=== PATIENT | female | born 1990 | race Caucasian/White ===

== ENCOUNTER → 2023-11-18 15:51 | Outpatient (REF) | payer BC, SELFPAY | LOC: PNTC 15:51 | PROVIDERS: ATTENDING PHYSICIAN Obstetrics & Gynecology | DX: E06.3 Autoimmune thyroiditis (principal); O44.42 Low lying placenta NOS or without hemorrhage, second trimester | CPT/HCPCS: 76816 ==

== ENCOUNTER 2024-01-08 08:30 | Inpatient (IN) | payer BC, SELFPAY ==
[2024-01-08 08:49] VITALS: BP 109/89; BMI 33.0
[2024-01-08] MEDS: LR 1000 IV ×2 (09:45→18:05)
[2024-01-08 10:59] LABS: % Basophils 0.3 % (0-2); % Eosinophils 0.8 % (0-6); % Immature Granulocytes 0.6 % (0-0.5); % Lymphocytes 15.3 % (20.5-51.1); % Monocytes 9.5 % (1.7-9.3); % Neutrophils 73.5 % (42.2-75.2); Absolute Eosinophils 0.1 10^3/uL (0-0.7); Absolute Immature Granulocytes 0.1 10^3/uL (0-0.05); Absolute Lymphocytes 1.5 10^3/uL (1.2-3.4); Absolute Monocytes 0.9 10^3/uL (0.1-0.6); Hematocrit 36.6 % (37.0-47.0); Hemoglobin 13.1 g/dL (12.0-16.0); Mean Corp Hgb Conc. 35.8 g/dL (33.0-37.0); Mean Corpuscular Hgb 31.5 pg (27.0-31.0); Mean Platelet Volume 12.2 fL (7.4-10.4); Nucleated Red Blood Cells % 0 %; Platelet Count 200 10^3/uL (130-400); Red Blood Cell Count 4.16 10^6/uL (4.20-5.40); White Blood Cell Count 9.5 10^3/uL (4.8-10.8)
[2024-01-08] MEDS: CYTOTEC 25 MICROGRAM PO ×2 (11:18→13:19)
[2024-01-08] MEDS: PITOCIN 30 UNITS/NSS 500 ML IV (17:24)
[2024-01-09] MEDS: LR 1000 IV ×4 (03:45→14:53)
[2024-01-09] MEDS: FENTANYL/BUPIVACAINE 100 EPIDURAL ×2 (04:06→10:58)
[2024-01-09] MEDS: SUBLIMAZE 100 MCG EPIDURAL (04:22)
[2024-01-09] MEDS: SYNTHROID 125 MCG PO (06:45)
[2024-01-09] MEDS: TYLENOL 1000 MG PO ×2 (10:40→16:42)
[2024-01-09] MEDS: ANCEF 10 IV ×2 (12:33→20:10)
[2024-01-09] MEDS: GENTAMICIN 60 MG IV (13:00)
[2024-01-09] MEDS: BICITRA 30 ML PO (16:35)
[2024-01-09] MEDS: PITOCIN 30 UNITS/NSS 500 ML IV (17:01)
--- NOTE | 2024-01-09 17:52 | W.IMMPOSTOP ---
Surgical Immed Post Op Note
-
Primary Surgeon: Kelli Gamez DO
Assisting Surgeon: Tina Parr RN
Pre-op Diagnosis: IUP at 40+3wks, arrest of descent, prolonged rupture of membranes, suspected intraamniotic infection
Post-op Diagnosis: SIERRA
Procedure Performed: PLTCS
Anesthesia Type: Epidural
Specimen / Cultures: Placenta
Estimated Blood Loss: 475ml
Complications: none
Operative Findings: normal-appearing uterus, tubes and ovaries, cephalic female infant in the ROSALINDA position, but not well-applied in the pelvis (head not flexed), weighing 4125gm, Apgars 8.9, nuchal cord x1. Clear amniotic fluid.
[2024-01-09] MEDS: METHERGINE INJECTION 0.200000000000000011 MG IM (18:38)
[2024-01-09] MEDS: TRANEXAMIC ACID 100 IV (18:44)
[2024-01-09] MEDS: CYTOTEC 800 MCG RECTAL (18:47)
[2024-01-09 18:59] LABS: Hematocrit 30.9 % (37.0-47.0); Hemoglobin 11.1 g/dL (12.0-16.0); Mean Corp Hgb Conc. 35.9 g/dL (33.0-37.0); Mean Corpuscular Hgb 32.2 pg (27.0-31.0); Mean Corpuscular Volume 89.6 fL (81.0-99.0); Mean Platelet Volume 12.2 fL (7.4-10.4); Platelet Count 190 10^3/uL (130-400); Red Blood Cell Count 3.45 10^6/uL (4.20-5.40); White Blood Cell Count 15.7 10^3/uL (4.8-10.8)
[2024-01-09 20:23] LABS: INR 0.97; PT 12.7 Sec (11.4-14.6)
[2024-01-09 20:24] LABS: APTT 29.5 Sec (23.4-35.0)
[2024-01-09 20:26] LABS: Fibrinogen 498 MG/DL (199-459)
[2024-01-09] MEDS: TORADOL 15 MG IV (23:58)
[2024-01-10] MEDS: METHERGINE 0.200000000000000011 MG PO ×2 (00:27→06:20)
[2024-01-10] MEDS: ANCEF 10 IV ×2 (04:03→11:42)
[2024-01-10 04:20] LABS: Hematocrit 28.2 % (37.0-47.0); Hemoglobin 9.8 g/dL (12.0-16.0); Mean Corp Hgb Conc. 34.8 g/dL (33.0-37.0); Mean Corpuscular Hgb 32.1 pg (27.0-31.0); Mean Corpuscular Volume 92.5 fL (81.0-99.0); Mean Platelet Volume 12.3 fL (7.4-10.4); Platelet Count 157 10^3/uL (130-400); Red Blood Cell Count 3.05 10^6/uL (4.20-5.40); Red Cell Dist. Width 12.7 % (11.5-14.5); White Blood Cell Count 17.1 10^3/uL (4.8-10.8)
[2024-01-10] MEDS: SYNTHROID 100 MCG PO (06:04)
[2024-01-10] MEDS: TORADOL 15 MG IV ×2 (06:04→11:41)
--- NOTE | 2024-01-10 08:11 | W.PN.ANS.POP ---
Anesthesia Post Operative
- Anesthesia Post Op Note
Vital Signs Stable-See Nursing Note: Yes
Airway Patent: Yes
Adequate Pain Control: Yes
Change in Mental Status: No
Current Postoperative Nausea & Vomiting: No
Anesthesia Complications: No
General Anesthetic Recall: No
Unplanned Admission: No
Post Op Hydration Adequate: Yes
[2024-01-10] MEDS: PRENATAL PLUS 1 TABLET PO (08:16)
[2024-01-10] MEDS: METHERGINE PO (13:28)
[2024-01-10] MEDS: GENTAMICIN 60 MG IV (15:02)
[2024-01-10] MEDS: SENOKOT-S 1 TABLET PO (15:17)
[2024-01-10] MEDS: MOTRIN 600 MG PO (17:40)
[2024-01-10] MEDS: TYLENOL 650 MG PO (21:46)
[2024-01-11] MEDS: SYNTHROID 100 MCG PO (05:52)
[2024-01-11] MEDS: MOTRIN 600 MG PO (06:43)
[2024-01-11] MEDS: PRENATAL PLUS 1 TABLET PO (08:11)
--- NOTE | 2024-01-11 11:29 | W.DS.TRANS ---
DC Summary - Batchmaker
-
Discharge Instructions:
Discharge Diagnosis/Procedures primary cs
Instructions:
Stand-Alone Forms: LDRP Delivery
Changes to Home Medications: No
Discharge Medications:
DC Medications w/original date entered in [facility]
levothyroxine 125 mcg tablet (Synthroid) 125 mcg PO DAILY@06 Thyroid 01/08/24
vitamin-ferrous fumarate 28 mg iron-folic acid 800 mcg tablet ( Tablet) 1 tab PO DAILY Supplement 01/08/24
ibuprofen 600 mg tablet 600 mg PO Q6HPRN PRN cramps #90 tabs 01/11/24
Home Medication Changes
Pending Results: No
Total time spent discharging patient (in min): 20
[2024-01-11 14:20] LABS: Syphilis/T. pallidum Ab Reflex Negative (Negative)
== END 2024-01-11 12:36 | disposition home or self-care (01) | DRG 786 ==
LOC: LDRP 08:30
PROVIDERS: ADMITTING PHYSICIAN Obstetrics & Gynecology
PROC: 3E0DXGC Introduction of Other Therapeutic Substance into Mouth and Pharynx, External Approach (ICD-10-PCS; 2024-01-08)
PROC: 3E033VJ Introduction of Other Hormone into Peripheral Vein, Percutaneous Approach (ICD-10-PCS; 2024-01-08)
PROC: 10D00Z1 Extraction of Products of Conception, Low, Open Approach (ICD-10-PCS; 2024-01-09)
PROC: 0UC97ZZ Extirpation of Matter from Uterus, Via Natural or Artificial Opening (ICD-10-PCS; 2024-01-09)
DX: O42.02 Full-term premature rupture of membranes, onset of labor within 24 hours of rupture (principal); O41.1030 Infection of amniotic sac and membranes, unspecified, third trimester, not applicable or unspecified; O72.1 Other immediate postpartum hemorrhage; O69.81X0 Labor and delivery complicated by cord around neck, without compression, not applicable or unspecified; O90.81 Anemia of the puerperium; O76 Abnormality in fetal heart rate and rhythm complicating labor and delivery; O99.284 Endocrine, nutritional and metabolic diseases complicating childbirth; O48.0 Post-term pregnancy; O64.0XX0 Obstructed labor due to incomplete rotation of fetal head, not applicable or unspecified; O62.1 Secondary uterine inertia; E03.9 Hypothyroidism, unspecified; Z37.0 Single live birth; Z88.0 Allergy status to penicillin; Z79.890 Hormone replacement therapy; Z3A.40 40 weeks gestation of pregnancy
CPT/HCPCS: 88307; 36415; 85025; 85027; 85384; 85610; 85730; 86780; 86850; 86900; 86901; 86920

== ENCOUNTER → 2024-03-15 16:38 | Outpatient (REF) | payer BC, SELFPAY | LOC: RAD 16:38 | PROVIDERS: ATTENDING PHYSICIAN Nurse Practitioner Family | DX: M25.562 Pain in left knee (principal); M79.662 Pain in left lower leg | CPT/HCPCS: 73564; 93971 ==